=== PATIENT | male | born 1960 ===

== ENCOUNTER 2017-01-24 09:30 | Emergency (ER) | payer MEDICAID, OTHER ==
[2017-01-24 09:47] VITALS: TEMP 98.5
--- NOTE | 2017-01-24 10:02 | C.PDOC ---
History Of Present Illness 56M c/o drainage and hearing loss from the left ear for the last 3 weeks. his sister who is an RN gave him amoxicillin 2 weeks ago which he says he took for about a week and also some unknown ear drops. he initially had some pain which has now resolved. no fever, nausea, vomiting, headache, or any other systemic sx. he denies any pmh other than htn Time Seen by Provider: 01/24/17 09:45 Chief Complaint (Nursing): ENT Problem Past Medical History Vital Signs: Last Vital Signs Temp 98.5 F 01/24/17 09:37 Pulse 84 01/24/17 09:37 Resp 18 01/24/17 09:37 BP 119/85 01/24/17 09:37 Pulse Ox 98 01/24/17 10:02 - Medical History PMH: HTN Family History: States: Other - Social History Hx Tobacco Use: Yes (7 CIG/DAY) Hx Alcohol Use: Yes Hx Substance Use: Yes - Immunization History Hx Tetanus Toxoid Vaccination: No Hx Influenza Vaccination: No Hx Pneumococcal Vaccination: No Review Of Systems Constitutional: Negative for: Fever, Chills, Weakness, Malaise ENT: Positive for: Ear Discharge. Negative for: Ear Pain Cardiovascular: Negative for: Chest Pain Respiratory: Negative for: Cough, Shortness of Breath Gastrointestinal: Negative for: Nausea, Vomiting Musculoskeletal: Negative for: Neck Pain Neurological: Negative for: Weakness, Numbness, Headache Physical Exam - Physical Exam Appears: Well, Non-toxic, No Acute Distress Skin: Warm, Dry Head: Other (no redness, tenderness, or swelling over the mastoids or pre- auricular regions) Ear(s): Left: TM Obscured By Wax, Right: Normal Neck: Normal ROM Respiratory: No Accessory Muscle Use Neurological/Psych: Oriented x3, Normal Cranial Nerves, Other (no focal deficits ) ED Course And Treatment O2 Sat by Pulse Oximetry: 98 Medical Decision Making Medical Decision Making: there was a large amount of cerumen in the left ear of which was able to remove some with a curette. this revealed some wall edema and small amount of inflammatory debris, however still unable to see TM. no signs of mastoiditis or malignant otitis at this time. will rx ciprodex and rec f/u w ENT in the next few days. return if worse. Disposition - Disposition Referrals: Sammy Pyle MD [Staff Provider] - Disposition: HOME/ ROUTINE Disposition Time: 10:00 Condition: STABLE Additional Instructions: Please follow up with the Ear, Nose, and Throat specialist as soon as possible. Return to the ER for any worsening symptoms, fever, redness/pain around or behind you ear, or for any other concerns. Prescriptions: Ciprofloxacin/Dexamethasone [Ciprodex 0.3%-0.1% 7.5 Ml] 3 drop OT TID #1 bottle Instructions: Otitis Externa (ED) - Clinical Impression Clinical Impression: Otitis externa
[2017-01-24 10:27] VITALS: BP 132/88; PULSE 88; RESP 20; O2SAT 99
== END 2017-01-24 10:25 | disposition home or self-care (01) ==
LOC: C.ER 09:30
DX: H60.92 Unspecified otitis externa, left ear (principal); H61.22 Impacted cerumen, left ear